=== PATIENT | male | born 2005 | race Caucasian/White ===

== ENCOUNTER 2023-09-25 19:42 | Emergency (ER) | payer SELFPAY | END 2023-09-25 22:09 | disposition home or self-care (01) | LOC: ERS 19:42 | DX: S80.02XA Contusion of left knee, initial encounter (principal); S71.102A Unspecified open wound, left thigh, initial encounter; V23.99XA Unspecified rider of other motorcycle injured in collision with car, pick-up truck or van in traffic accident, initial encounter | CPT/HCPCS: 36416 ==

== ENCOUNTER 2025-03-08 20:02 | Emergency (ER) | payer SELFPAY ==
[2025-03-08] MEDS ORDERED: Dexamethasone 10 MG/ML VIAL ONE ×2 (21:33→21:39)
[2025-03-08] MEDS ORDERED: Benzonatate 100 MG CAP ONE (21:36)
== END 2025-03-08 21:42 | disposition home or self-care (01) ==
LOC: ERS 20:02
DX: J06.9 Acute upper respiratory infection, unspecified (principal); J02.9 Acute pharyngitis, unspecified; F17.200 Nicotine dependence, unspecified, uncomplicated
CPT/HCPCS: 87081; 87428; 87430; 99283; J1100

== ENCOUNTER 2025-03-16 13:27 | Emergency (ER) | payer SELFPAY ==
[2025-03-16 14:04] LABS: #Basophils 0.05 10x3/uL (0.0-0.2); #Eosinophils 0.13 10x3/uL (0.0-0.7); #Monocytes 0.88 10x3/uL (0.11-0.59); #Neutrophils 7.61 10x3/uL (1.40-6.50); %Basophils 0.4 % (0.0-1.0); %Eosinophils 1.1 % (0.0-10.0); %Lymphocytes 22.7 % (21.0-51.0); %Monocytes 7.6 % (0.0-10.0); %Neutrophils 66.2 % (42.0-75.0); Hematocrit 43.7 % (42.0-52.0); Hemoglobin 14.2 g/dL (14.0-18.0); Mean Corpuscular Hemoglobin 29.6 pg (27.0-31.0); Mean Corpuscular Volume 91.0 fL (78.0-98.0); Platelet Count 292 10x3/uL (130-400); Red Blood Cell (RBC) Count 4.80 mill/uL (4.70-6.10); White Blood Cell (WBC) Count 11.51 10x3/uL (4.8-10.8)
[2025-03-16 14:26] LABS: ALT (SGPT) 49 U/L (Less than 45); AST (SGOT) 31 U/L (11-34); Albumin 3.5 g/dL (3.1-4.5); Alkaline Phosphatase 75 U/L (40-110); Anion Gap 15 mmol/L (10-20); BUN (Urea Nitrogen) 9 mg/dL (8.9-20.6); Bilirubin, Total 0.2 mg/dL (0.3-1.2); Calc. Creatinine Clearance 0 mL/min (70-130); Calcium 8.6 mg/dL (7.8-10.44); Carbon Dioxide 22 mmol/L (22-29); Chloride 106 mmol/L (98-107); Globulin 2.3 g/dL (2.4-3.5); Glucose 104 mg/dL (70-105); Potassium 4.0 mmol/L (3.5-5.1); Sodium 139 mmol/L (136-145)
[2025-03-16 16:47] LABS: Bacteria/HPF None Seen HPF (None Seen); CAUTI Indications for Culture Fever or rigors; Glucose, Urine (Dipstick) Normal (Negative); Leukocyte Negative Leu/uL (Negative); Protein, Urine (Dipstick) Negative (Neg-Trace); RBC/HPF None Seen HPF (0-3); Specific Gravity, Urine 1.006 (1.002-1.036); WBC/HPF 0-3 HPF (0-3)
[2025-03-16 16:49] LABS: Urine Culture Reflex No No
== END 2025-03-16 17:20 | disposition home or self-care (01) ==
LOC: ERS 13:27
DX: R42 Dizziness and giddiness (principal)
CPT/HCPCS: 36415; 70450; 80053; 81001; 84484; 85025; 93005